=== PATIENT | male | born 2000 | race Caucasian/White ===

== ENCOUNTER 2024-02-27 06:35 | Observation (INO) ==
[2024-02-27] MEDS: NOZIN NASAL SANITIZER TP ONE (06:46)
[2024-02-27] MEDS: LR 1,000 ML IV 1,000 ML IV ONE (07:00)
[2024-02-27 07:10] LABS: BASOPHILS # (AUTO) 0.1 X10^3/uL (0.0-0.1); BASOPHILS % (AUTO) 0.7 % (0.2-1.0); EOSINOPHILS # (AUTO) 0.2 x10^3/uL (0.0-0.2); EOSINOPHILS % (AUTO) 3.1 % (0.9-2.9); HEMATOCRIT 43.1 % (42.0-54.0); HEMOGLOBIN 14.6 g/dL (13.5-18.0); LYMPHOCYTES # (AUTO) 2.5 X10^3/uL (1.3-2.9); LYMPHOCYTES % (AUTO) 30.8 % (21.0-51.0); MEAN CORPUSCULAR HEMOGLOBIN 27.2 pg (27.0-34.0); MEAN CORPUSCULAR HGB CONC 33.9 g/dL (33.0-35.0); MEAN CORPUSCULAR VOLUME 80.3 fL (80.0-100.0); MEAN PLATELET VOLUME 8.9 fL (7.4-11.0); MONOCYTES # (AUTO) 0.7 x10^3/uL (0.3-0.8); NEUTROPHILS # (AUTO) 4.6 x10^3/uL (2.2-4.8); NEUTROPHILS % (AUTO) 56.4 % (42.0-75.0); PLATELET COUNT 235 X10^3/uL (150.0-450.0); RED BLOOD COUNT 5.38 X10^6/uL (4.7-6.0); RED CELL DISTRIBUTION WIDTH 14.2 % (11.6-16.5); WHITE BLOOD COUNT 8.1 X10^3/uL (3.6-10.0)
[2024-02-27 07:23] VITALS: BMI 35.9
[2024-02-27 07:25] LABS: ALANINE AMINOTRANSFERASE 70 Units/L (12-78); ALKALINE PHOSPHATASE 76 Units/L (46-116); ASPARTATE AMINO TRANSFERASE 30 Units/L (15-37); BLOOD UREA NITROGEN 14 mg/dL (7-18); CALCIUM 8.9 mg/dL (8.5-10.1); CARBON DIOXIDE 23.9 mmol/L (21-32); CHLORIDE 105 mmol/L (98-107); CREATININE 0.93 mg/dL (0.70-1.30); GLUCOSE 96 mg/dL (65-99); POTASSIUM 4.1 mmol/L (3.5-5.1); SODIUM 140 mmol/L (136-145); TOTAL PROTEIN 7.3 g/dL (6.4-8.2); eGFR NON BLACK RACES > 60 (>60)
[2024-02-27] MEDS ORDERED: TYLENOL 325 MG TAB PO PRN (07:27)
[2024-02-27] MEDS ORDERED: ZOFRAN INJ 4 MG VIAL IVP PRN ×2 (07:27→08:35)
[2024-02-27] MEDS: LR 1,000 ML IV 100 ML IV PRN (07:30)
[2024-02-27] MEDS: VERSED IVP PRN (07:40)
[2024-02-27] MEDS: ZOFRAN INJ 4 MG VIAL IVP PRN (07:42)
[2024-02-27] MEDS ORDERED: VENTOLIN or PROAIR HFA ONE (07:44)
[2024-02-27] MEDS ORDERED: ULTANE GAS IN ONE (07:44)
[2024-02-27] MEDS ORDERED: ANCEF VIAL 1 GRAM IV PRN (07:44)
[2024-02-27] MEDS: NS 100 ML IV 100 ML ONE (07:44)
[2024-02-27] MEDS: ANCEF VIAL 1 GRAM ONE (07:44)
[2024-02-27] MEDS ORDERED: KETAMINE HCL ONE (07:44)
[2024-02-27] MEDS: ROBINUL IVP PRN (07:51)
[2024-02-27] MEDS: ATROPINE SULFATE IVP PRN (07:53)
[2024-02-27] MEDS ORDERED: XYLOCAINE 2 % (PLAIN) PRN (07:53)
[2024-02-27] MEDS: DIPRIVAN VIAL 200 ML IVP PRN (07:54)
[2024-02-27] MEDS: PEPCID 20 MG VIAL IVP PRN (07:56)
[2024-02-27] MEDS: FENTANYL VIAL INJ 100 mcg IVP PRN (07:58)
[2024-02-27] MEDS: REGLAN INJ 10 MG VIAL IVP PRN (08:02)
[2024-02-27] MEDS: MARCAINE 0.25% INJ ONE (08:07)
[2024-02-27] MEDS: OFIRMEV IV 1000 MG VIAL 1,000 MG/100 ML VIAL IV PRN (08:09)
[2024-02-27] MEDS: KETAMINE HCL IV PRN (08:12)
[2024-02-27] MEDS ORDERED: BARHEMSYS INJ IVP PRN (08:35)
[2024-02-27] MEDS ORDERED: DILAUDID INJ IVP PRN (08:35)
[2024-02-27] MEDS ORDERED: BENADRYL INJ 50 MG VIAL IVP PRN (08:35)
[2024-02-27] MEDS: PRECEDEX INJ VIAL IVP PRN (08:40)
[2024-02-27] MEDS: BENADRYL INJ 50 MG VIAL IVP PRN (08:42)
[2024-02-27] MEDS: TORADOL 30 MG VIAL IVP PRN (08:57)
[2024-02-27] MEDS ORDERED: DANTRIUM PRN (09:23)
[2024-02-27] MEDS: DECADRON INJ IVP PRN (10:19)
[2024-02-27] MEDS: LOVENOX INJ 40 MG SYR SC SCH (11:27)
[2024-02-27] MEDS: NS 1,000 ML IV 1,000 ML IV SCH (11:29)
[2024-02-27] MEDS: FENTANYL VIAL INJ 100 mcg ONE (11:46)
[2024-02-27] MEDS: VERSED ONE (11:48)
[2024-02-27] MEDS: DECADRON INJ ONE ×2 (11:49→11:57)
[2024-02-27] MEDS: DIPRIVAN VIAL 20 ML ONE (11:49)
[2024-02-27] MEDS: ZOFRAN INJ 4 MG VIAL ONE (11:50)
[2024-02-27] MEDS: REGLAN INJ 10 MG VIAL ONE (11:50)
[2024-02-27] MEDS: PEPCID 20 MG VIAL ONE (11:50)
[2024-02-27] MEDS: OFIRMEV IV 1000 MG VIAL 1,000 MG/100 ML VIAL IV ONE (11:50)
[2024-02-27] MEDS: PRECEDEX INJ VIAL ONE (11:52)
[2024-02-27] MEDS: ATROPINE SULFATE ONE (11:53)
[2024-02-27] MEDS: XYLOCAINE 2 % (PLAIN) ONE (11:53)
[2024-02-27] MEDS: ROBINUL ONE ×2 (11:55→11:58)
[2024-02-27] MEDS: BENADRYL INJ 50 MG VIAL ONE (11:55)
[2024-02-27] MEDS: DILAUDID INJ ONE (11:56)
[2024-02-27] MEDS: TORADOL 30 MG VIAL ONE (11:56)
[2024-02-27] MEDS: PERCOCET TAB 5/325 MG PO PRN (12:35)
[2024-02-27] MEDS: DILAUDID INJ IVP PRN (18:14)
[2024-02-27] MEDS ORDERED: COLACE CAP 100 MG PO SCH (21:00)
[2024-02-28 04:25] VITALS: TEMP 98.3
[2024-02-28 05:40] LABS: BLOOD UREA NITROGEN 9 mg/dL (7-18); CALCIUM 8.1 mg/dL (8.5-10.1); CARBON DIOXIDE 25.9 mmol/L (21-32); CHLORIDE 104 mmol/L (98-107); COR NA(FOR HYPERGLY) 141 mmol/L (136-145); CREATININE 0.85 mg/dL (0.70-1.30); GLUCOSE 127 mg/dL (65-99); POTASSIUM 3.4 mmol/L (3.5-5.1); SODIUM 140 mmol/L (136-145); eGFR NON BLACK RACES > 60 (>60)
[2024-02-28] MEDS ORDERED: CONSULT PHARMACY - POTASSIUM & MAGNESIUM XX SCH (07:00)
[2024-02-28 07:32] VITALS: RESP 16
--- NOTE | 2024-02-28 08:26 | NOTE.SOAP ---
Soap Note Note for Day of Date of Exam: 02/28/24 Subjective Data Subjective Data: Patient's only complaint is pain overnight. Hasn't had dilaudid since midnight. Hasn't had PO pain medication since 4 am. Otherwise doing okay denies N/V/F/C/Sob. Objective Data Objective Data: Right Lower Extremity Exam: Dressing taken down. Surgical incision healing well. No signs of dehiscence. No signs of hematoma. No signs of infection. No signs or symptoms of DVT or PE. Rewrapped with sterila 4x4s, webroll, splint, LANE. Assessment Assessment: 23 year old M POD#1 talus replacement with STJ fusion, right foot Plan Plan: - NWB to RLE. - Has Rx for pain medication, may double it if needed. - Has Rx for anti-nasuea. - Has Rx for Lovenox in chart. Give one before DC and start tomorrow. - Keep dressing clean, dry and intact. - Has F/U appt in chart. - Okay for discharge from our standpoint.
[2024-02-28] MEDS: K-DUR TAB 20 MEQ PO SCH (08:29)
[2024-02-28] MEDS: MAG-OX TAB PO SCH (08:34)
[2024-02-28 14:12] VITALS: BP 130/70; PULSE 73; O2SAT 96
== END 2024-02-28 13:23 | disposition home or self-care (01) ==
LOC: MED/SURG 06:35 → SURG1 06:35 → EDSTATUS 07:30
PROVIDERS: ADMIT Obstetrics & Gynecology Obstetrics; ATTEND Obstetrics & Gynecology Obstetrics
DX: G89.18 Other acute postprocedural pain; E87.6 Hypokalemia; X58.XXXA Exposure to other specified factors, initial encounter; Q66.89 Other specified congenital deformities of feet; E83.42 Hypomagnesemia; M19.071 Primary osteoarthritis, right ankle and foot; S93.691A Other sprain of right foot, initial encounter